=== PATIENT | male | born 1975 | race Caucasian/White ===

== ENCOUNTER 2021-03-27 15:26 | Emergency (ER) | payer OTHER ==
[~2021-03-27] VITALS: Ht 185.4 cm; Wt 86.5 kg
[2021-03-27 16:14] VITALS: TEMP 98.4
[2021-03-27 17:09] LABS: BASO # 0.1 (0.0-0.2); EOS # 0.4 (0.0-0.7); EOS % 5.9 % (0-4.0); GRAN # 3.3 (1.4-6.5); GRAN % 55.4 % (42.2-75.2); HEMATOCRIT 42.1 % (42.0-52.0); HEMOGLOBIN 14.5 g/dl (13.5-18.0); LYMPH # 1.8 (1.2-3.4); LYMPH % 29.3 % (20.0-51.0); MEAN CELL VOLUME 91 fl (80.0-100.0); MEAN CORPUSCULAR HEMOGLOBIN 31 pg (27.0-31.0); MEAN CORPUSCULAR HGB CONC 34 g/dl (33.0-37.0); MEAN PLATELET VOLUME 10.2 fl (7.4-10.4); MONO # 0.5 (0.1-0.6); MONO % 7.9 % (1.7-9.3); PLATELET COUNT 199 K/mm3 (130-400); RED BLOOD COUNT 4.63 M/mm3 (4.20-5.60); REDCELL DISTRIBUTION WIDTH-CV 12.8 % (11.5-14.5)
[2021-03-27 17:22] LABS: ALBUMIN 4.2 gm/dL (3.5-5.0); BILIRUBIN,TOTAL 0.7 mg/dL (0.2-1.2); CALCIUM 9.8 mg/dL (8.4-10.2); CREATININE, serum 1.07 mg/dL (0.72-1.25); POTASSIUM 4.4 mmol/L (3.5-4.5); TOTAL PROTEIN 7.2 gm/dL (6.2-8.1)
[2021-03-27 20:05] VITALS: BP 115/75; PULSE 72
== END 2021-03-27 20:05 | disposition home or self-care (01) ==
LOC: COL.ER 15:26
PROVIDERS: Personal Emergency Response Attendant
DX: R20.2 Paresthesia of skin (principal)

== ENCOUNTER 2021-04-15 09:04 | Emergency (ER) | payer OTHER ==
[~2021-04-15] VITALS: Ht 185.4 cm; Wt 86.4 kg
[2021-04-15 09:11] VITALS: TEMP 97.9
[2021-04-15 10:22] VITALS: BP 117/74; PULSE 51
== END 2021-04-15 10:20 | disposition home or self-care (01) ==
LOC: COL.ER 09:04
DX: S60.352A Superficial foreign body of left thumb, initial encounter (principal); R20.2 Paresthesia of skin; W45.8XXA Other foreign body or object entering through skin, initial encounter; Y99.0 Civilian activity done for income or pay